=== PATIENT | male | born 1955 | race Caucasian/White ===

== ENCOUNTER 2025-05-07 06:21 | Day surgery (SDC) | payer OTHER, SELFPAY | END 2025-05-07 12:19 | disposition home or self-care (01) | LOC: GI 06:21 | PROVIDERS: ATTENDING PHYSICIAN Internal Medicine | DX: K51.90 Ulcerative colitis, unspecified, without complications (principal); Z98.0 Intestinal bypass and anastomosis status; K62.89 Other specified diseases of anus and rectum | CPT/HCPCS: 45331; 88305 ==